=== PATIENT | female | born 1945 | race Caucasian/White ===

== ENCOUNTER 2020-06-18 07:06 | Outpatient (RCR) | payer MEDICARE, SELFPAY | END 2020-06-18 23:59 | LOC: IMMUN 07:06 | PROVIDERS: PCP Internal Medicine; Referring Provider Family Medicine; Visit Provider Family Medicine | DX: Z23 Encounter for immunization (principal) | CPT/HCPCS: 0011A; 0012A; 91301 ==

== ENCOUNTER 2024-06-29 15:38 | Observation (INO) | payer MEDICARE, SELFPAY ==
[2024-06-29 15:39] VITALS: BP 172/86; PULSE 95; RESP 16; TEMP 36.4; O2SAT 97; BMI 24.5
--- NOTE | 2024-06-29 16:04 | EX.ED.DYSGE1 ---
HPI History of Present Illness Chief Complaint: Abd Pain [facility] Medical History (Updated 06/29/24 @ 16:16 by Lakeshia Moraes) Hypercholesteremia Asthma Hypertension Allergy/AdvReac Type Severity Reaction Status Date / Time Latex, Natural Rubber Allergy Severe Anaphylaxis Verified 06/29/24 15:41 Social History Smoking Status: Never smoker EXAM Physical Exam Const Vital Signs: 06/29/24 15:39 06/29/24 17:00 06/29/24 18:00 Temperature 97.6 F L Temperature Source Oral Pulse Rate 95 Respiratory Rate 16 Blood Pressure 172/86 H 145/87 H 152/88 H Blood Pressure Mean 114 105 108 Pulse Ox 97 98 99 Oxygen Delivery Method Room Air 06/29/24 19:00 06/29/24 21:00 06/29/24 21:00 Temperature Temperature Source Pulse Rate 88 Respiratory Rate 16 Blood Pressure 147/90 H 121/75 H Blood Pressure Mean 108 88 Pulse Ox 98 97 Oxygen Delivery Method 06/29/24 23:00 Temperature Temperature Source Pulse Rate 95 Respiratory Rate 18 Blood Pressure 134/78 H Blood Pressure Mean 96 Pulse Ox 96 Oxygen Delivery Method Room Air MDM [facility] Narrative Medical decision making narrative: HISTORY OF PRESENT ILLNESS: 79-year-old female history of hypertension, hyperlipidemia, asthma presents abdominal pain that began approximate 4 hours prior to arrival. The patient notes this began at noon. Last bowel movement was today. Notes 3 bowel movements today. Denies vomiting. Notes history of hysterectomy but otherwise denies abdominal surgical history. REVIEW OF SYSTEMS: Pertinent positives: Abdominal pain Pertinent negatives: vomiting, fever, urinary complaints PHYSICAL EXAM: Nursing triage notes reviewed, Vital signs reviewed Constitutional: please see mdm HENT: MMM Eyes: Pupils equal round and reactive to light, Extraocular muscles intact Neck: No stridor, no JVD, full neck ROM Lungs: Clear to auscultation, No wheezing or rales. No increased work of breathing, no conversational dyspnea, no accessory muscle use, no nasal flaring. No respiratory distress noted Heart: Regular rate and rhythm, No murmurs, No rubs and No gallops, 2+ distal pulses (radial, femoral, posterior tibial) in all extremities Abdomen: th Rigidity, rebound or guarding, no obvious peritoneal signs, no palpable pulsatile abdominal masses, no auscultated abdominal bruit : No CVAT Extremities: No edema Neuro: No new focal neurological deficits, cranial nerves II through XII intact, 5/5 strength in all present extremities. Intact sensation to light touch in all present extremities, 2+ reflexes bilateral patella tendons. Skin: No rash or lesions noted MEDICAL DECISION MAKING: Chief Complaint: Abdominal pain External records reviewed: Reviewed prior imaging studies. No obvious imaging studies noted in [facility] Factors affecting care: asthma, HTN, HLD Social determinants of health: none History obtained from others: none Consults: General Surgery (Dr. Harmon) MDM Narrative: Patient was initially hemodynamically stable, afebrile, nontoxic-appearing. Exam with right lower quadrant TTP, no peritoneal signs. I considered the following differential diagnosis: AAA, small bowel obstruction, abdominal perforation, appendicitis, pancreatitis, hepatobiliary pathology (acute cholecystitis), mesenteric ischemia, pathology (ie nephrolithiasis, pyelonephritis). IV placed. Patient was initially resuscitated with normal saline and Toradol ALL IMAGES (IF OBTAINED) HAVE BEEN PERSONALLY REVIEWED AND INTERPRETED BY MYSELF. CBC without leukocytosis, severe anemia, no thrombocytopenia. BMP without evidence of significant electrolyte abnormalities, no anion gap, no acute kidney injury. LFTs show no evidence of hepatobiliary pathology. Urinalysis shows no evidence of urinary inflammation suggestive of UTI The patient ED course she required 2 doses of narcotic pain medication. (4 mg IV morphine). Initial CT scan was in determinate given poor contrast timing. The radiologist does mention that acute appendicitis cannot be excluded and recommended consulting general surgery. I talked to the general surgeon on-call who recommended getting an additional CT scan with oral contrast. The patient was taken down an additional 3 times however each time the visualization of the area in question was suboptimal per general surgery's wet read. At this time we are awaiting final read from radiology to determine next steps. CT read returned with essentially the same findings of nonvisualized appendix and concern for appendicitis. Discussed with Dr. Harmon who agrees to come into the emergency department to evaluate the patient. Discussed with Dr. Harmon, recommended admission for serial abdominal exams. The patient and/or family, caregivers express understanding. The patient and/or family, caregivers agrees with the plan. Shared decision making: I will have a discussion with the patient and or visitors regarding risk/benefits of further testing or admission. They will be made aware of of the risk/benefits inherent in this decision they will be given the opportunity to voice understanding. Total critical care time today provided was at least 0 minutes. This excludes separately billable procedures. Critical care time (if documented) is secondary to the patient having high probability of clinically significant/life threatening deterioration in the patient's condition which required my urgent intervention. Impression: 1. Abdominal pain 2. Right lower quadrant Inflammatory changes 3. History of hypertension Dispo: Awaiting general surgery evaluation and final recommendations This note was generated with [employer] dictation software. It may contain incorrect words, spelling, and punctuation that were not noted in review of the chart prior to signing. Lab Data Labs: Laboratory Results - last 24 hr 06/29/24 06/29/24 16:41 16:57 WBC 5.7 RBC 4.34 Hgb 13.5 Hct 40.3 MCV 92.9 MCH 31.1 MCHC 33.5 RDW Std Deviation 42.9 RDW Coeff of Lucy 12.6 Plt Count 217 MPV 9.6 Immature Gran % (Auto) 0.200 Neut % (Auto) 80.1 H Lymph % (Auto) 9.2 L [place] % (Auto) 6.0 Eos % (Auto) 4.1 Baso % (Auto) 0.4 Absolute Neuts (auto) 4.5 Absolute Lymphs (auto) 0.52 L Nucleated RBC % 0 Sodium 137 Potassium 3.9 Chloride 102 Carbon Dioxide 20.9 L Anion Gap 14 BUN 16 Creatinine 0.83 Estim Creat Clear Calc 53.14 Est GFR (MDRD) Non-Af 72 BUN/Creatinine Ratio 19.4 Glucose 112 H Calcium 9.9 Total Bilirubin 0.45 AST 33 H ALT 30 Alkaline Phosphatase 121 H Total Protein 7.6 Albumin 4.8 Globulin 2.8 Albumin/Globulin Ratio 1.7 Lipase 31 Urine Color Yellow Urine Clarity Clear Urine pH 7.0 Ur Specific [place] 1.010 Urine Protein Negative Urine Glucose (UA) Normal Urine Ketones 5 H Urine Occult Blood Negative Urine Nitrite Negative Urine Bilirubin Negative Urine Urobilinogen Normal Ur Leukocyte Esterase Negative Urine RBC 0 SEEN Urine WBC 0-5 SEEN Ur Squamous Epith Cells 0 SEEN Ur Transition Epith Cell 0-5 SEEN Urine Bacteria 0 SEEN Urine Mucus 0 SEEN Radiography Diagnostic Testing: Clinical Impression(s) from Imaging Studies Abdomen/Pelvis CT 06/29/24 16:42 IMPRESSION: 1. Prominent inflammatory changes in the right lower quadrant appear centered on a relatively short segment of mid ileum immediately abutting the cecum and distal/terminal ileum. Although this could reflect prominent focal enteritis, given that the appendix is not identified as a distinct structure, acute appendicitis cannot be excluded. Adjacent free fluid without organized collection to suggest current abscess. A follow-up exam with p.o. contrast maybe helpful. Surgical consultation should be considered. 2. Indeterminate 1.9 cm left adrenal nodule. If there is no history of malignancy, consider follow-up adrenal protocol CT in 12 months per ACR recommendations. If there is history of known malignancy, this should be performed more expeditiously. Comparison with any available outside imaging may also be helpful. 3. Additional description as above. Findings in impression #1 were discussed by telephone with Livia SHAHID at 4:20 pm [facility] on 06/29/2024. Reading Location: [facility] Abdomen CT 06/29/24 18:27 IMPRESSION: Right lower quadrant inflammatory changes involving the distal and terminal ileum, as well as the cecum with adjacent stranding, the appendix is not visualized. Underlying acute appendicitis can not be excluded. Alternatively this may represent inflammatory/infectious etiology involving the distal and terminal ileum, as well as the cecum. Surgical consultation is recommended. 1 cm indeterminate right adrenal nodule. MRI of the adrenal glands is recommended for further characterization. One or more dose reduction techniques were used (e.g., Automated exposure control, adjustment of the mA and/or kV according to patient size, use of iterative reconstruction technique). Reading Location: [facility] Discharge Plan Triage Chief Complaint: Abd Pain ED Provider: Surya Bhakta Dx/Rx/DC Orders Primary Care Provider: Hernan Srivastava Referrals: Hernan Srivastava MD [Primary Care Provider] - Print Language: [place]
--- NOTE | 2024-06-29 16:42 | CT_ITS ---
PROCEDURE: ABDOMEN/PELVIS W IV CONT ONLY REASON FOR EXAM: Right lower quadrant abdominal pain TECHNIQUE: CT abdomen and pelvis was performed with IV contrast. Multiplanar reformats were generated. IV CONTRAST: 99 mL Isovue-300 COMPARISON: None FINDINGS: Lung bases: Mild atelectasis/scarring.. Liver: Unremarkable. Spleen: Unremarkable. Gallbladder: Unremarkable. Pancreas: Unremarkable. Adrenals: 1.9 x 1.0 cm indeterminate right adrenal nodule. Kidneys: Fullness of the extrarenal pelvis bilaterally without deena caliectasis/hydronephrosis. Bowel: Gastric under distension limits evaluation of the wall thickness. Prominent inflammatory changes in the right lower quadrant appear centered on a relatively short segment of inflamed mid ileum which demonstrates marked wall thickening and mural stratification with mesenteric edema and adjacent free fluid. This immediately abuts the cecum which appears slightly distorted with margins difficult to delineate given inflammation in the region. The appendix is not discretely identified as if this distinct structure. The distal most terminal ileum immediately above this region however appear decompressed and unremarkable. Small bowel upstream from the inflamed segment demonstrates fluid and gaseous distention to maximum 2.4 cm, without deena dilatation, favoring ileus related to inflammation. Diverticulosis. Lymph nodes: Unremarkable. Vasculature: Trace atherosclerosis. Peritoneum: As above. Bladder: Distended and otherwise unremarkable. Reproductive Organs: Hysterectomy. Body Wall: Unremarkable. Bones: Degenerative disc disease greatest at L5-S1. CT/Abdomen/Pelvis W IV Cont ONLY IMPRESSION: 1. Prominent inflammatory changes in the right lower quadrant appear centered o n a relatively short segment of mid ileum immediately abutting the cecum and distal/terminal ileum. Although this could reflect prominent focal enteritis, given that the appendix is not identified as a distinct structure, acute appendicitis cannot b e excluded. Adjacent free fluid without organized collection to suggest current abscess. A follow-up exam with p.o. contrast may be helpful. Surgical consultation should be considered. 2. Indeterminate 1.9 cm left adrenal nodule. If there is no history of maligna ncy, consider follow-up adrenal protocol CT in 12 months per ACR recommendations. If there is history of known malignancy, this s hould be performed more expeditiously. Comparison with any available outside imaging may also be helpful. 3. Additional description as above. Findings in impression #1 were discussed by telephone with Livia SHAHID at 4:20 pm [facility] on 06/29/2024. Reading Location: [id number]
[2024-06-29] MEDS: Ketorolac 15 MG/ML Vial IV (16:52)
[2024-06-29] MEDS: 0.9% Normal Saline (1000mL) 1,000 ML 999 ML IV (16:53)
[2024-06-29 17:00] VITALS: BP 145/87; O2SAT 98
[2024-06-29 17:03] LABS: Bacteria 0 SEEN /hpf (None Seen); Mucous, Urine 0 SEEN /hpf (<or=2+); Squamous Epithelial Cells - UA 0 SEEN /hpf (5-10)
[2024-06-29 17:05] LABS: Absolute Lymphocyte Count 0.52 X10^3/uL (0.83-4.51); Absolute Neutrophil Count 4.5 X10^3/uL (2.0-7.7); Basophil# 0.02 X10^3/uL; Basophil% 0.4 % (0-1); Eosinophil# 0.23 X10^3/uL; Eosinophils% 4.1 % (0-5); Hematocrit 40.3 % (37-47); Hemoglobin 13.5 g/dL (12.0-15.0); Lymphocyte # 0.52 X10^3/ul (0.83-4.51); Lymphocyte % 9.2 % (19-41); Mean Corp Hgb Conc 33.5 g/dL (32-36); Mean Corpuscular Hgb 31.1 pg (27.0-32.0); Mean Corpuscular Volume 92.9 fL (81-99); Mean Platelet Vol. 9.6 fl (6.2-12.0); Monocyte# 0.34 X10^3/uL; NRBC Flagged by Analyzer 0 % (0-5); Neutrophil # 4.53 X10^3/uL (2.7-7.7); Neutrophil % 80.1 % (47-70); POSITIVE DIFFERENTIAL YES; Platelet Count 217 K/mm3 (150-450); RBC Distribution Width CV 12.6 % (11.6-14.6); RBC Distribution Width SD 42.9 fl (35.1-43.9); Red Blood Count 4.34 M/mm3 (4.2-5.4); White Blood Count 5.7 K/mm3 (4.4-11.0)
[2024-06-29 17:17] LABS: ALB/GLOB Ratio 1.7 RATIO (0.9-2.4); AST(SGOT) 33 U/L (<=31); Alanine Aminotransfer ALT/SGPT 30 U/L (<=34); Albumin, Serum 4.8 g/dL (3.4-4.8); Alkaline Phosphatase 121 U/L (35-104); Anion Gap 14 (5-15); BUN 16 mg/dL (4-19); BUN/Creat Ratio 19.4 RATIO (10-20); Calcium,Total 9.9 mg/dL (7.6-11.0); Carbon Dioxide 20.9 mmol/L (21.0-32.0); Chloride 102 mmol/L (98-108); Creatinine, Serum 0.83 mg/dL (0.70-1.20); EST Glomerular Filtration Rate 72 (>60); Estimated Creatinine Clearance 53.14 ml/min (50-250); Globulin 2.8 g/dL (2.2-4.2); Glucose 112 mg/dL (70-99); Lipase 31 U/L (13-75); Potassium 3.9 mmol/L (3.3-5.1); Protein, Total 7.6 g/dL (5.9-8.4); Sodium Level 137 mmol/L (133-145); Total Bilirubin 0.45 mg/dL (0.00-1.30)
[2024-06-29 17:33] LABS: Color, Urine Yellow (Yellow); Glucose, Dipstick Normal (Normal); Ketone-Dipstick 5 mg/dl (Negative); Leukocyte Esterase-Dipstick Negative /ul (Negative); Nitrite-Dipstick Negative (Negative); Occult Blood-Urine Negative /ul (Negative); Protein-Dipstick Negative (Negative); Urine Bilirubin Dipstick Negative (Negative); Urine Clarity Clear (Clear); Urine Urobilinogen Normal (Normal)
[2024-06-29 18:00] VITALS: BP 152/88; O2SAT 99
[2024-06-29] MEDS: Morphine 4 MG/ML Syringe IV ×2 (18:20→23:45)
--- NOTE | 2024-06-29 18:27 | CT_ITS ---
PROCEDURE: ABDOMEN/PEL W ORAL CONT ONLY REASON FOR EXAM: Right lower quadrant pain TECHNIQUE: Abdomen and pelvis CT without intravenous contrast. Oral contrast was used. COMPARISON: CT of the abdomen and pelvis obtained earlier today. FINDINGS: Noncontrast technique limits evaluation of the abdominal and pelvic viscera. Lung bases: Bibasilar atelectasis. Liver: Unremarkable. Gallbladder: Unremarkable. Spleen: Unremarkable. Pancreas: Unremarkable. Adrenals: 1 cm indeterminate right adrenal nodule. Kidneys: Excretory phase. No evidence of hydronephrosis. Bladder: Unremarkable. Reproductive Organs: Prior hysterectomy. Adnexal regions are unremarkable. Bowel: Oral contrast reaches the mid small bowel. The distal small bowel and large bowel are limited due to lack of oral contrast opacification. Stomach appears grossly unremarkable. Prominent loops of proximal small bowel, no wall thickening or adjacent stranding. There is marked inflammatory changes of the right lower quadrant, involving the distal and terminal ileum, as well as the cecum with adjacent stranding. This is unchanged when compared with the earlier study. The remaining large bowel appears grossly unremarkable. Appendix: The appendix is not clearly visualized, underlying acute appendicitis can not be excluded. Lymph nodes: Prominent mesenteric lymph nodes. Vasculature: Major vascular structures are unremarkable. Peritoneum / Retroperitoneum: No ascites. No free air. Bones: Unremarkable. CT/Abdomen/Pel W ORAL Cont Only IMPRESSION: Right lower quadrant inflammatory changes involving the distal and terminal ile um, as well as the cecum with adjacent stranding, the appendix is not visualized. Underlying acute appendicitis can not be exclu ded. Alternatively this may represent inflammatory/infectious etiology involving the distal and terminal ileum, as we ll as the cecum. Surgical consultation is recommended. 1 cm indeterminate right adrenal nodule. MRI of the adrenal glands is recommen ded for further characterization. One or more dose reduction techniques were used (e.g., Automated exposure contr ol, adjustment of the mA and/or kV according to patient size, use of iterative reconstruction technique). Reading Location: [facility]
[2024-06-29 18:35] LABS: Red Blood Cells-Urine 0 SEEN /hpf (0-5); Transitional Epithelial - Ur 0-5 SEEN /hpf (0-5); White Blood Cells 0-5 SEEN /hpf (0-5)
[2024-06-29 19:00] VITALS: BP 147/90
[2024-06-29 21:00] VITALS: BP 121/75; PULSE 88; RESP 16; O2SAT 97; O2SAT 98
[2024-06-29 23:00] VITALS: BP 134/78; PULSE 95; RESP 18; O2SAT 96
[2024-06-29] MEDS: 0.9% Normal Saline (500mL Bag) 500 ML 999 ML IV (23:45)
[2024-06-29] MEDS: Ondansetron 4 MG/2 ML Vial IV (23:45)
[2024-06-30] VITALS (15 sets, daily range): BP systolic 135–159; BP diastolic 66–87; PULSE 76–103; RESP 15–18; TEMP 36.6–37.1; O2SAT 93–100; BMI 24.5
--- NOTE | 2024-06-30 00:44 | HP.PCM_ITS ---
HPI - General General Date of Admission: 06/30/24 Chief Complaint: Acute onset abdominal pain HPI Narrative DEVAN DAVIS, is a 79 F who presents to [facility] with complaints of acute onset abdominal pain that began shortly after her lunch today. She states she had a lunch of soup followed by some ice cream and within 10 minutes experience mid abdominal pain with some pain radiation to her back that has become now localized to right sided abdominal pain. This pain has been associated with some episodic nausea and 1 bout of vomiting. Patient states that shortly after the abdominal pain began she thought she may find some relief by passing gas so she went to the bathroom and experienced a normal bowel movement. She adds that her bowel movement frequency was exceptional as she never experiences 3 bowel movements like she did today, however, she denies noting any loose stools, dark stools, or any other unusual abnormalities. She denies any sick contacts. She shares she does have a diagnosis of asthma and was recently evaluated for an asthma exacerbation and placed on antibiotics in the last 2 weeks. Patient's ER workup notable for CBC without leukocytosis but there is a left shift present. CT imaging of the abdomen pelvis was initially completed with IV contrast. This simply showed inflammatory changes of the right lower quadrant of the abdomen without definitive identification of the appendix. Therefore acute appendicitis was unable to be ruled out but a p.o. contrast scan was recommended. I was briefed of the patient's presentation and seconded this recommendation and tried to help facilitate its completion. Ultimately the follow-up scan was read much the same as the first and I was asked to formally evaluate patient. Patient's past medical history is inclusive of hyperlipidemia and hypertension in addition to her asthma. Her only past surgical history is that of a hysterectomy. She denies any family history of inflammatory bowel disease. [facility] Medical History (Updated 06/30/24 @ 00:[address] Sage Harmon MD) Hypercholesteremia Asthma Hypertension Home Medications ?Medication ?Instructions ?Recorded ?Last Taken ?Type amlodipine 5 mg tablet 5 mg PO DAILY 06/30/24 Unkno wn History atorvastatin 10 mg tablet 10 mg PO QHS 06/30/24 Unknow n History cetirizine 10 mg capsule (All Day 10 mg PO QHS 5 Unknown History Allergy (cetirizine)) Allergy/AdvReac Type Severity Reaction Status Date / Time Latex, Natural Rubber Allergy Severe Anaphylaxis Verified 06/29/24 15:41 Social History Smoking Status: Never smoker Vital Signs Vital Signs Vital Signs: 06/29/24 15:39 06/29/24 17:00 06/29/24 18:00 Temperature 97.6 F L Temperature Source Oral Pulse Rate 95 Respiratory Rate 16 Blood Pressure 172/86 H 145/87 H 152/88 H Blood Pressure Mean 114 105 108 Pulse Ox 97 98 99 Oxygen Delivery Method Room Air 06/29/24 19:00 06/29/24 21:00 06/29/24 21:00 Temperature Temperature Source Pulse Rate 88 Respiratory Rate 16 Blood Pressure 147/90 H 121/75 H Blood Pressure Mean 108 88 Pulse Ox 98 97 Oxygen Delivery Method 06/29/24 23:00 06/30/24 00:26 Temperature 98.2 F Temperature Source Pulse Rate 95 88 Respiratory Rate 18 15 Blood Pressure 134/78 H 159/80 H Blood Pressure Mean 96 106 Pulse Ox 96 96 Oxygen Delivery Method Room Air Weight Weight: 152 lb Body Mass Index (BMI) 24.5 Physical Exam Const alert, oriented x3 and no apparent distress General Appearance: cooperative Resp normal respiratory effort GI GI Narrative: Slender nondistended, soft, minimally tender to palpation (patient rates currently on a 2-3 out of 10 at over McBurney's point). There is a mildly positive obturator and psoas sign. Skin Skin Narrative: Petechial rash across patient's upper abdomen. Results Lab / Micro Data 06/29/24 16:41 06/29/24 16:41 Labs: Laboratory Results - last 24 hr 06/29/24 16:41: WBC 5.7, RBC 4.34, Hgb 13.5, Hct 40.3, MCV 92.9, MCH 31.1, MCHC 33.5, RDW Std Deviation 42.9, RDW Coeff of Lucy 12.6, Plt Count 217, MPV 9.6, Immature Gran % (Auto) 0.200, Neut % (Auto) 80.1 H, Lymph % (Auto) 9.2 L, [place] % (Auto) 6.0, Eos % (Auto) 4.1, Baso % (Auto) 0.4, Absolute Neuts (auto) 4.5, A bsolute Lymphs (auto) 0.52 L, Nucleated RBC % 0, Sodium 137, Potassium 3.9, Chloride 102, Carbon Dioxide 20.9 L, Anion Gap 14, BUN 16, Creatinine 0.83, Estim Creat Clear Calc 53.14, Est GFR (MDRD) Non-Af 72, BUN/Creatinine Ratio 19.4, Glucose 112 H, Calcium 9.9, Total Bilirubin 0.45, AST 33 H, ALT 30, A lkaline Phosphatase 121 H, Total Protein 7.6, Albumin 4.8, Globulin 2.8, Albumin/Globulin Ratio 1.7, Lipase 31 06/29/24 16:57: Urine Color Yellow, Urine Clarity Clear, Urine pH 7.0, Ur Specific [place] 1.010, Urine Protein Negative, Urine Glucose (UA) Normal, Urine Ketones 5 H, Urine Occult Blood Negative, Urine Nitrite Negative, Urine Bilirubin Negative, Urine Urobilinogen Normal, Ur Leukocyte Esterase Negative, Urine RBC 0 SEEN, Urine WBC 0-5 SEEN, Ur Squamous Epith Cells 0 SEEN, Ur Transition Epith Cell 0-5 SEEN, Urine Bacteria 0 SEEN, Urine Mucus 0 SEEN Imaging Radiology Impression Abdomen/Pelvis CT 06/29/24 16:42 IMPRESSION: 1. Prominent inflammatory changes in the right lower quadrant appear centered on a relatively short segment of mid ileum immediately abutting the cecum and distal/terminal ileum. Although this could reflect prominent focal enteritis, given that the appendix is not identified as a distinct structure, acute appendicitis cannot be excluded. Adjacent free fluid without organized collection to suggest current abscess. A follow-up exam with p.o. contrast maybe helpful. Surgical consultation should be considered. 2. Indeterminate 1.9 cm left adrenal nodule. If there is no history of malignancy, consider follow-up adrenal protocol CT in 12 months per ACR recommendations. If there is history of known malignancy, this should be performed more expeditiously. Comparison with any available outside imaging may also be helpful. 3. Additional description as above. Findings in impression #1 were discussed by telephone with Livia SHAHID at 4:20 pm [facility] on 06/29/2024. Reading Location: [id number] Abdomen CT 06/29/24 18:27 IMPRESSION: Right lower quadrant inflammatory changes involving the distal and terminal ileum, as well as the cecum with adjacent stranding, the appendix is not visualized. Underlying acute appendicitis can not be excluded. Alternatively this may represent inflammatory/infectious etiology involving the distal and terminal ileum, as well as the cecum. Surgical consultation is recommended. 1 cm indeterminate right adrenal nodule. MRI of the adrenal glands is recommended for further characterization. One or more dose reduction techniques were used (e.g., Automated exposure control, adjustment of the mA and/or kV according to patient size, use of iterative reconstruction technique). Reading Location: [facility] Assessment & Plan Assessment/Plan (1) Right lower quadrant abdominal pain: PLAN: Patient is 79-year-old female who presents with acute onset right lower quadrant pain with some associated nausea. CT imaging of the abdomen pelvis was obtained to rule out appendicitis, but unfortunately both patient's index study and follow-up study with enteric contrast were largely equivocal for this diagnosis. In my elicitation of the patient's history and review of her laboratories I find her Patel score to be 5 which simply corresponds with possible appendicitis. Patient's exam is unimpressive for me as she rates her pain at just a 2-3 out of 10. She acknowledges that she fairly recently had some pain medication administered. With her equivocal CT imaging, pretest probability, and exam I am inclined to proceed with additional watchful waiting and recommended observational stay for serial abdominal exams. Patient was receptive and we will plan to admit to the hospital for conservative management without antibiotics and an opportunity to reexamine patient later this morning. Patient is advised to remain n.p.o. such that if she is found to be more convincingly consistent with a diagnosis of appendicitis we will plan to proceed to the operating room for diagnostic laparoscopy and laparoscopic appendectomy. Patient confirms understanding. Sage Harmon MD General Surgery Endocrine Surgery Pager: [facility] [address] [place] [address], [address] [place] [address] Office: [phone] (2) Abnormal CT of the abdomen: Charges/Coding Visit Charges Inpatient E&M: 31797 Init Hosp L2
[2024-06-30] MEDS: 0.9% Saline Lock 10 ML Syringe IV (01:52)
[2024-06-30] MEDS: 0.9% Normal Saline (1000mL) 1,000 ML 100 ML IV ×2 (01:52→14:05)
[2024-06-30] MEDS: HYDROmorphone 0.5 MG/0.5 ML SYRINGE IV (02:15)
[2024-06-30 06:45] LABS: Absolute Lymphocyte Count 0.46 X10^3/uL (0.83-4.51); Absolute Neutrophil Count 5.4 X10^3/uL (2.0-7.7); Basophil# 0.02 X10^3/uL; Basophil% 0.3 % (0-1); Eosinophil# 0.04 X10^3/uL; Eosinophils% 0.6 % (0-5); Hematocrit 37.1 % (37-47); Hemoglobin 12.2 g/dL (12.0-15.0); Lymphocyte # 0.46 X10^3/ul (0.83-4.51); Lymphocyte % 7.4 % (19-41); Mean Corp Hgb Conc 32.9 g/dL (32-36); Mean Corpuscular Hgb 31.1 pg (27.0-32.0); Mean Corpuscular Volume 94.6 fL (81-99); Monocyte# 0.34 X10^3/uL; Monocyte% 5.4 % (0-10); NRBC Flagged by Analyzer 0 % (0-5); Neutrophil # 5.35 X10^3/uL (2.7-7.7); Neutrophil % 85.8 % (47-70); POSITIVE DIFFERENTIAL YES; Platelet Count 234 K/mm3 (150-450); RBC Distribution Width CV 12.7 % (11.6-14.6); RBC Distribution Width SD 43.2 fl (35.1-43.9); Red Blood Count 3.92 M/mm3 (4.2-5.4); White Blood Count 6.2 K/mm3 (4.4-11.0)
[2024-06-30 07:45] LABS: Anion Gap 14 (5-15); BUN 13 mg/dL (4-19); BUN/Creat Ratio 16.4 RATIO (10-20); Calcium,Total 9.1 mg/dL (7.6-11.0); Carbon Dioxide 21.2 mmol/L (21.0-32.0); Chloride 104 mmol/L (98-108); Creatinine, Serum 0.81 mg/dL (0.70-1.20); EST Glomerular Filtration Rate 75 (>60); Estimated Creatinine Clearance 54.45 ml/min (50-250); Glucose 108 mg/dL (70-99); Potassium 3.9 mmol/L (3.3-5.1); Sodium Level 139 mmol/L (133-145)
--- NOTE | 2024-06-30 08:02 | PN.SURG_ITS ---
Objective Data Objective Data Vital Signs: Vital Signs Temp Pulse Resp BP Pulse Ox O2 Del Method 98.4 F 89 16 136/71 H 96 Room Air 06/30/24 06:45 06/30/24 06:45 06/30/24 06:45 06/30/24 06:45 06/30/24 06:45 06/30/24 06:45 Oxygen Delivery Method Room Air Weight: 151 lb 10.848 oz Body Mass Index (BMI) 24.5 Intake & Output: Intake and Output for Last 24 Hours 06/28/24 06/29/24 06/30/24 23:59 23:59 23:59 Intake Total 1000 / 1000 500 / 500 Balance 1000 / 1000 500 / 500 Lab / Micro Data 06/30/24 05:23 06/30/24 05:23 Labs: Laboratory Results - last 24 hr 06/29/24 16:41: WBC 5.7, RBC 4.34, Hgb 13.5, Hct 40.3, MCV 92.9, MCH 31.1, MCHC 33.5, RDW Std Deviation 42.9, RDW Coeff of Lucy 12.6, Plt Count 217, MPV 9.6, Immature Gran % (Auto) 0.200, Neut % (Auto) 80.1 H, Lymph % (Auto) 9.2 L, Holt % (Auto) 6.0, Eos % (Auto) 4.1, Baso % (Auto) 0.4, Absolute Neuts (auto) 4.5, A bsolute Lymphs (auto) 0.52 L, Nucleated RBC % 0, Sodium 137, Potassium 3.9, Chloride 102, Carbon Dioxide 20.9 L, Anion Gap 14, BUN 16, Creatinine 0.83, Estim Creat Clear Calc 53.14, Est GFR (MDRD) Non-Af 72, BUN/Creatinine Ratio 19.4, Glucose 112 H, Calcium 9.9, Total Bilirubin 0.45, AST 33 H, ALT 30, A lkaline Phosphatase 121 H, Total Protein 7.6, Albumin 4.8, Globulin 2.8, Albumin/Globulin Ratio 1.7, Lipase 31 06/29/24 16:57: Urine Color Yellow, Urine Clarity Clear, Urine pH 7.0, Ur Specific [place] 1.010, Urine Protein Negative, Urine Glucose (UA) Normal, Urine Ketones 5 H, Urine Occult Blood Negative, Urine Nitrite Negative, Urine Bilirubin Negative, Urine Urobilinogen Normal, Ur Leukocyte Esterase Negative, Urine RBC 0 SEEN, Urine WBC 0-5 SEEN, Ur Squamous Epith Cells 0 SEEN, Ur Transition Epith Cell 0-5 SEEN, Urine Bacteria 0 SEEN, Urine Mucus 0 SEEN 06/30/24 05:23: WBC 6.2, RBC 3.92 L, Hgb 12.2, Hct 37.1, MCV 94.6, MCH 31.1, MCHC 32.9, RDW Std Deviation 43.2, RDW Coeff of Lucy 12.7, Plt Count 234, MPV 10.0, Immature Gran % (Auto) 0.500, Neut % (Auto) 85.8 H, Lymph % (Auto) 7.4 L, Holt % (Auto) 5.4, Eos % (Auto) 0.6, Baso % (Auto) 0.3, Absolute Neuts (auto) 5.4, Absolute Lymphs (auto) 0.46 L, Nucleated RBC % 0, Sodium 139, Potassium 3.9, Chloride 104, Carbon Dioxide 21.2, Anion Gap 14, BUN 13, Creatinine 0.81, Estim Creat Clear Calc 54.45, Est GFR (MDRD) Non-Af 75, BUN/Creatinine Ratio 16.4, Glucose 108 H, Calcium 9.1 Radiography Diagnostic Testing: Radiology Impression Abdomen/Pelvis CT 06/29/24 16:42 IMPRESSION: 1. Prominent inflammatory changes in the right lower quadrant appear centered on a relatively short segment of mid ileum immediately abutting the cecum and distal/terminal ileum. Although this could reflect prominent focal enteritis, given that the appendix is not identified as a distinct structure, acute appendicitis cannot be excluded. Adjacent free fluid without organized collection to suggest current abscess. A follow-up exam with p.o. contrast maybe helpful. Surgical consultation should be considered. 2. Indeterminate 1.9 cm left adrenal nodule. If there is no history of malignancy, consider follow-up adrenal protocol CT in 12 months per ACR recommendations. If there is history of known malignancy, this should be performed more expeditiously. Comparison with any available outside imaging may also be helpful. 3. Additional description as above. Findings in impression #1 were discussed by telephone with Livia SHAHID at 4:20 pm [facility] on 06/29/2024. Reading Location: [id number] Abdomen CT 06/29/24 18:27 IMPRESSION: Right lower quadrant inflammatory changes involving the distal and terminal ileum, as well as the cecum with adjacent stranding, the appendix is not visualized. Underlying acute appendicitis can not be excluded. Alternatively this may represent inflammatory/infectious etiology involving the distal and terminal ileum, as well as the cecum. Surgical consultation is recommended. 1 cm indeterminate right adrenal nodule. MRI of the adrenal glands is recommended for further characterization. One or more dose reduction techniques were used (e.g., Automated exposure control, adjustment of the mA and/or kV according to patient size, use of iterative reconstruction technique). Reading Location: [facility]
--- NOTE | 2024-06-30 08:37 | PCM.PN.BLA ---
Progress Note Patient is seen and evaluated bedside this morning. She is initially found roaming about her room. She declares she is as good as can be expected and by the states that her pain has been tolerable but she has required 2 doses of IV pain medication overnight. Additionally, she complains that she has not been able to sleep. She remains tender to palpation over McBurney's point and her left shift has worsened somewhat. I tell her that she remains equivocal for a diagnosis of appendicitis but and the name of preventing further inaction and hopefully finding an answer to the cause for her right lower quadrant inflammatory change I do recommend proceeding for diagnostic laparoscopy. Further, I recommend that we proceed with appendectomy during the operation to be certain we exclude this from in the future because of inflammation. Patient provides her verbal assent. Procedure was described in detail and questions were answered. Will obtain written consent. Operating room team has been notified. IV antibiotics have been initiated.
--- NOTE | 2024-06-30 09:10 | PRE.ANES_ITS ---
ASA Classification* ASA Classification ASA Classification: 2 and E Assessment & Plan Anesthesia* Anesthesia Assessment Anesthesia Assessment: Discussed sedation and/or anesthesia options, risks, benefits, and alternatives with patient/parents/legal guardian/POA. Questions invited. The patient/parents/legal guardian/POA seems to understand and agrees to proceed with anesthesia plan. Reviewed the physical assessment, medical history, allergy history and patient home medications list prior to surgery/procedure/anesthetic and documented any changes. Performed airway and anesthesia risk assessments. Anesthesia Type Anesthesia Type: General Anesthesia Focused Assessment* Temperature: 98.3 F Pulse Rate: 91 Blood Pressure: 144/87 Respiratory Rate: 18 Pulse Ox: 98 Airway Assessment Mouth opens: >3 cm Mallampati Score: II Focused Labs Anesthesia Preop lab: CBC WBC 6.2 K/mm3 (4.4-11.0) 06/30/24 05:06/30/24 RBC 3.92 M/mm3 (4.2-5.4) L 06/30/24 05:06/30/24 Hgb 12.2 g/dL (12.0-15.0) 06/30/24 05:23 06/30/24 Hct 37.1 % (37-47) 06/30/24 05:23 06/30/24 Plt Count 234 K/mm3 (150-450) 06/30/24 05:23 06/30/24 CHEMISTRY Potassium 3.9 mmol/L (3.3-5.1) 06/30/24 05:23 06/30/24 Sodium 139 mmol/L (133-145) 06/30/24 05:06/30/24 BUN 13 mg/dL (4-19) 06/30/24 05:06/30/24 Creatinine 0.81 mg/dL (0.70-1.20) 06/30/24 05:06/30/24 Glucose 108 mg/dL (70-99) H 06/30/24 05:23 06/30/24 COAG Pre-Assessment Diagnosis/Proposed Procedure Planned Operative Procedure(s): Exploratory laparoscopy, possible appendectomy Anesthesia History 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 When Was Last Pacemaker Check QUESTION #4 FULL TEXT: You/Your Family Experience fever (hyperthermia) with Anesthesia Last Oral Intake Last Oral intake: Last Oral Intake NPO since 00:00 06/30/24 08:45 Meds taken in AM with sips of No 06/30/24 08:45 water? Meds patient instructed to take am of surgery PONV PONV - explosive ordnance technician: PONV - explosive ordnance technician Female HX of Motion Sickness HX of N/V After Surgery Non-Smoker Duration of Surgery greater than 60 minutes Number of Risk Factors PONV Score Height & Weight Height & Weight: Anesthesia: Height & Weight Height 5 ft 6 in 06/30/24 08:45 Weight: 68.8 kg 06/30/24 08:45 Body Mass Index (BMI) 24.5 06/30/24 08:45 Respiratory Assessment Respiratory Assessment - explosive ordnance technician: Respiratory Tract Infection Hx - explosive ordnance technician Hx Respiratory Tract Infection Yes: URI mid-April to 06/30/24 01:31 current STOP Sleep Apnea STOP Sleep Apnea - explosive ordnance technician: STOP Sleep Apnea - explosive ordnance technician Hx Hypertension Yes 06/30/24 01:26 Hx Sleep Apnea No 06/30/24 01:26 CPAP BIPAP Do you snore loudly (louder No 06/30/24 01:26 than talking or can be heard Do you often feel tired/ Yes 06/30/24 01:26 fatigued/ sleepy during daytime? Has anyone observed you stop No 06/30/24 01:26 breathing during sleep? STOP Results Positive 06/30/24 01:26 QUESTION #5 FULL TEXT : Do you snore loudly (louder than talking or can be heard through closed doors)? Tobacco Use History Tobacco Use History - explosive ordnance technician: Tobacco Use History - explosive ordnance technician Tobacco Use Smoking Status Former smoker 06/30/24 01:26 Hx Tobacco Use No 06/30/24 01:26 Years Smoking 20 06/30/24 01:26 Packs Smoked per Day 0.5 06/30/24 01:26 Smoking Cessation Date was Yes - quit smoking within 15 06/30/24 01:26 within the last 15 years years Hx Smoking Cessation Date Hx Smoking Cessation Counseling Hematologic Medial History Hematologic Hx - explosive ordnance technician: Hematologic Medical Hx - laserist Hx of Blood Transfusion No 06/30/24 01:26 Hx of Transfusion in last 3 No 06/30/24 01:26 Months Date of Last Transfusion (if within last 3 months) Ever experience any problems No 06/30/24 01:26 with transfusion(s)? Specify any problems Hx of Preganancy in last 3 No 06/30/24 01:26 Months Nurse Filling Out Transfusion JGLASS 06/30/24 01:26 & Questions: Date: 06/30/24 06/30/24 01:26 Time: 01:06/30/24 01:26 Patient unable to answer at this time (ie. confused, unrespo /Reproduction History /Reproductive History - explosive ordnance technician: /Reproductive Hx- explosive ordnance technician Hx Now No 06/30/24 01:31 Gestational Age (in weeks): EDC: Hx Hx Para Hx Section SAB No 06/30/24 01:31 Active Medications Active Medications: Current Medications Generic Name Dose Route Start Last Admin Trade Name Freq PRN Reason Stop Dose Admin Acetaminophen 500 mg 06/30/24 00:41 Acetaminophen 500 Mg Tablet PO Q6H PRN PRN Pain Score 1-10 Albuterol Sulfate 2.5 mg 06/30/24 08:45 Albuterol 2.5 Mg/3 Ml Vial.Neb. INHALATION Q6HWA.RT [facility] Amlodipine Besylate 5 mg 06/30/24 10:00 Amlodipine 5 Mg Tablet PO DAILY [facility] Protocol Atorvastatin Calcium 10 mg 06/30/24 22:00 Atorvastatin Calcium 10 Mg Tablet PO QHS BASIL Budesonide 0.5 mg 06/30/24 08:45 Budesonide Respules 0.5 Mg/2 Ml Ampul.Neb. INHALATION Q12H.RT [facility] Hydromorphone HCl 0.5 mg 06/30/24 00:41 06/30/24 02:15 Hydromorphone 0.5 Mg/0.5 Ml Syringe IV 0.5 mg Q4H PRN PRN Administration Pain Score 6-10 Sodium Chloride 1,000 mls @ 100 mls/hr 06/30/24 00:45 06/30/24 01:52 IV 06/30/24 20:44 100 mls/hr .Q10H BASIL Administration Protocol Sodium Chloride 100 mls @ 15 mls/hr 06/30/24 01:08 IV .Q6H40M PRN Saline Flush Piperacillin Sod/Tazobactam 50 mls @ 12.5 mls/hr 06/30/24 08:40 Sod 3.375 gm/ Sodium Chloride IV Q8 BASIL Ondansetron HCl 4 mg 06/30/24 00:41 Ondansetron 4 Mg/2 Ml Vial IV Q6H PRN PRN NAUSEA/VOMITING Sodium Chloride 10 - 40 ml 06/30/24 01:08 06/30/24 01:52 0.9% Saline Lock 10 Ml Syringe IV 10 ml UD PRN Administration SALINE FLUSH PFSH Medical History Arthritis Insomnia Eczema Hypercholesteremia Asthma Hypertension Home Medications ?Medication ?Instructions ?Recorded ?Last Taken ?Type albuterol sulfate 90 mcg/actuation 2 - 4 puff inhalati on Q2H PRN PRN 06/30/24 Unknown History aerosol inhaler wheezing amlodipine 5 mg tablet 5 mg PO DAILY blood pressure 06/30/24 06/29/24 07:30 History ascorbic acid (vitamin C) 500 mg 500 mg PO DAILY suppl ement 06/30/24 06/29/24 07:30 History chewable tablet (C-500) atorvastatin 10 mg tablet 10 mg PO QHS cholesterol 12/1706/28/24 22:00 History cetirizine 10 mg capsule (All Day 10 mg PO QHS allergi es 06/30/24 06/28/24 22:00 History Allergy (cetirizine)) ibuprofen 200 mg tablet (Advil) 400 mg PO BID arthriti s 06/30/24 06/29/24 07:30 History lorazepam 1 mg tablet 1 mg PO QHS PRN PRN anxiety or 06/30/24 Unknown History insomnia mometasone-formoterol HFA 100 1 puff inhalation BID as thma 06/30/24 06/29/24 07:30 History mcg-5 mcg/actuation aerosol inhaler (Dulera) multivitamin (Daily Value tablet) 1 tab PO DAILY suppl ement 06/30/24 Unknown History Allergy/AdvReac Type Severity Reaction Status Date / Time Latex, Natural Rubber Allergy Severe Anaphylaxis Verified 06/29/24 15:41 codeine AdvReac Mild Upset Verified 06/30/24 01:15 Stomach Surgical History History of melanoma excision History of hysterectomy Social History Smoking Status: Former smoker Review of Systems (Anesthesia) ROS Narrative System reviewed and no additional complaints, except as documented.
[2024-06-30] MEDS: Piperacil/Tazobactam 3.375 GM in 0.9% Normal Saline (50mL MB+) 50 ML IV ×3 (09:37→21:24)
--- NOTE | 2024-06-30 10:20 | APP_PTH ---
PATIENT: DEVAN DAVIS LOC: [facility] U#:[id number] AGE/SX: 79/F ROOM: MD321 RE06/30/[address]: Dr. Sage Harmon MD : 1945 BED: 1 DIS: 07/02/2024 SPEC #: [id number] RECD: 07/02/24 11:03 STATUS: IONA REGus #: [id number] MYRNA: 06/30/24 10:[address]: Sage Harmon DEPT: SURGICAL PATHOLOGY RECD BY: Pedro Easton ENTERED: 07/02/24 11:04 SP TYPE: APPENDIX OTHR DR: Dr. Hernan Srivastava MD Tissues: Appendix, NOS Procedures: Surgery Specimen Level III HEADER OPERATION: Exploratory laparoscopy, laparoscopic appendectomy PRE-OP DIAGNOSIS: Abdominal pain TISSUE SUBMITTED: Appendix MICROSCOPIC DIAGNOSIS APPENDIX, APPENDECTOMY: * FIBROUS OBLITERATION OF THE LUMEN MICROSCOPIC DESCRIPTION Slides are reviewed. GROSS DESCRIPTION Received in fixative is one container labeled with the patient's name and designated appendix. The specimen consists of an appendix measuring 5.5 x 0.7 x 0.5 cm. A small amount of periappendiceal adipose is attached. The serosal surface is white-ewing, smooth and shiny. No exudates or other lesions are identified. Sectioning reveal a tight lumen, with no fecaliths idenitfied. The proximal end is closed with an 8mm staple line. The proximal end is inked black, and the appendix is serially sectioned and totally submitted in two cassettes. TE2 07/02/2024 CPT: 69671
--- NOTE | 2024-06-30 10:53 | PCM.OPRPT ---
Operative Report (Standard) Operative Information Date of Procedure: 06/30/24 Pre-Operative Diagnosis: Acute onset right lower quadrant pain with abnormal CT imaging inability to rule out appendicitis Post-Operative Diagnosis: Internal hernia created by adhesive bands in right lower quadrant Surgery/Procedure Performed: 1. Diagnostic laparoscopy with laparoscopic adhesiolysis 2. Laparoscopic appendectomy circular knife machine cutter: Yes Bilingual Patient Support Caseworker: Alfonso Lopez Tasks completed by catering assistant: Opening & closing, Retracting and Other (laparoscopic camera operation) Type of Anesthesia: General/Supplemental RN Documented Start/Stop Times: Operation Date: 06/30/24 10:20 Case Time Anesthesia Start 06/30/24 09:37 Into Room 06/30/24 09:37 Procedure Start 06/30/24 09:58 Procedure End 06/30/24 10:58 Anesthesia End 06/30/24 11:05 Out of Room 06/30/24 11:05 Into Recovery 06/30/24 11:11 Out of Recovery 06/30/24 11:38 Procedure Start Time: 09:58 Procedure Stop Time: 10:58 Select all DRAINS/GRAFTS/IMPLANTS that apply: None Estimated Blood Loss: 15 Specimen collected: Yes Description of specimen(s) removed: Appendix Description of surgery: After appropriate identification in the preoperative holding area, the patient was brought to the operating room and placed supine on the operating room table. Antibiotics had been preoperatively administered. Consents were confirmed. Patient was then induced with general endotracheal anesthetic. The abdomen was prepped and draped in usual sterile fashion. Formal timeout was conducted to confirm both the patient and the procedure. A supraumbilical incision was made and carried down to the level of the fascia which was sharply opened. After opening the peritoneum in like fashion a finger sweep was made to confirm position, and a balloon trocar was placed and pneumoperitoneum was established to 15 mmHg. Patient was positioned in Trendelenburg with the left side down. Two additional 5 mm trocars were placed in the left lower quadrant and suprapubic positions. The peritoneum was inspected and there were no signs of inadvertent injury from this Mccarthy entry. The appendix was not immediately visualized but instead there was a injectable mildly dilated segment of small bowel disappearing posterior and laterally to the cecum. Using blunt laparoscopic dissection, I was able to demonstrate that the small bowel was trapped with then a compartment a lateral to the colon bounded anteriorly by a broad adhesive band between the cecum and the lateral abdominal wall. Gentle traction was applied to the bowel until it was fully reduced back to the pelvis. Immediately there is an improved appearance of its perfusion. I then used a laparoscopic harmonic energy device to divide these bands and several more proximally to probably open the compartment adjacent to the ascending colon and prevent risk for future entrapment. Moving into the pelvis I found multiple loops of ileum that were adherent upon 1 another via small adhesive bands. I traced the tinea coli of the cecum proximally until I found a normally?proportioned appendix diving deeply into the nest of small bowel and small bowel mesentery. Since I had already begun the process of adhesion lysis I continued this until the terminal ileal segment was fully straightened. A fourth 5 mm port was placed in the left upper quadrant under laparoscopic visualization to facilitate safe lysis of adhesions. Great care was taken to avoid injury to the bowel itself and the lysis of adhesions was completed with laparoscopic fanta. Minimal bleeding resulted with this process. In relieving these adhesions I was unable to traced distally the appendix through the soft tissue and was careful to follow it directly against the corpus of the appendix by providing traction out of the pelvis and retroperitoneum. Adhesions and mesoappendix were divided directly against the appendix using application of the laparoscopic harmonic device. Lastly the base of the appendix was sealed with single firing of the Endo NEGIN stapler. Staple line was inspected for hemostasis and initially there was some oozing but this quickly abated. The appendix was placed in an Endo Catch bag. The small amount of bleeding that was present in the area of the patient's prior internal hernia as well as the region of the mesoappendix was irrigated and suctioned free of the peritoneal cavity using laparoscopic suction rod placer device. I then ran the bowel proximally through the ileal segment and found further improvements in the bowel perfusion and was satisfied with this inspection. After hemostasis was confirmed the appendix was removed from the umbilical port site. Pneumoperitoneum was then evacuated and the supraumbilical port site fascia was closed with #1 Vicryl in a [id number] fashion. The port sites were infiltrated with 30 mL local anesthetic. The skin of each port site was closed with 4-0 Monocryl in a subcuticular fashion. Steri-Strips and OpSite dressings were applied. Patient tolerated procedure well without any apparent complications. They were awoken from general anesthetic without issue and transferred to post anesthesia care unit for ongoing recovery. Surgical Findings: ? Injected small bowel (later identified as proximal ileum) found incarcerated with an internal hernia caused by adhesive band between abdominal sidewall and cecum ? Normal?appearing appendix found coursing through small bowel mesentery ? Numerous small bowel adhesions in the right lower quadrant Complications Complications: No
[2024-06-30] MEDS: Bupivacaine 0.25% 30 ML Vial (10:54)
--- NOTE | 2024-06-30 12:15 | CPS ---
Talked to pt to let her know aerosols had been ordered. She wants to take her Dulera instead which we could send to pharmacy. Sending message on Backline to Dr Harmon.
--- NOTE | 2024-06-30 13:51 | CASEMGMT ---
YIFAN WILLSON in to discuss BARBA form with patient. YIFAN WILLSON explained BARBA form, patient voiced understanding. Pt signed form and filed in chart. Pt provided with a copy of signed BARBA form. Patient had no further questions or concerns at this time. YIFAN WILLSON discussed DC planning wtih pt, she is I at baseline and denies any DC needs at this time.
[2024-06-30] MEDS: 0.9% Normal Saline (100mL Bag) 100 ML 15 ML IV (14:05)
[2024-06-30] MEDS: amLODIPine 5 MG Tablet PO (14:06)
[2024-06-30] MEDS: Atorvastatin Calcium 10 MG Tablet PO (21:25)
[2024-07-01 03:29] VITALS: BP 135/68; PULSE 79; RESP 16; TEMP 36.6; O2SAT 95
[2024-07-01] MEDS: Piperacil/Tazobactam 3.375 GM in 0.9% Normal Saline (50mL MB+) 50 ML IV ×2 (06:31→14:07)
[2024-07-01 06:40] VITALS: BP 123/63; PULSE 74; RESP 16; TEMP 36.6; O2SAT 93
[2024-07-01 08:03] LABS: Absolute Lymphocyte Count 0.63 X10^3/uL (0.83-4.51); Absolute Neutrophil Count 3.2 X10^3/uL (2.0-7.7); Basophil# 0.01 X10^3/uL; Basophil% 0.2 % (0-1); Eosinophil# 0.22 X10^3/uL; Eosinophils% 4.9 % (0-5); Hematocrit 34.8 % (37-47); Hemoglobin 11.6 g/dL (12.0-15.0); Lymphocyte # 0.63 X10^3/ul (0.83-4.51); Mean Corp Hgb Conc 33.3 g/dL (32-36); Mean Corpuscular Hgb 31.6 pg (27.0-32.0); Mean Corpuscular Volume 94.8 fL (81-99); Mean Platelet Vol. 10.1 fl (6.2-12.0); Monocyte# 0.45 X10^3/uL; NRBC Flagged by Analyzer 0 % (0-5); Neutrophil # 3.17 X10^3/uL (2.7-7.7); Neutrophil % 70.5 % (47-70); Platelet Count 207 K/mm3 (150-450); RBC Distribution Width CV 12.5 % (11.6-14.6); RBC Distribution Width SD 43.3 fl (35.1-43.9); Red Blood Count 3.67 M/mm3 (4.2-5.4); White Blood Count 4.5 K/mm3 (4.4-11.0)
[2024-07-01 08:16] VITALS: BP 135/70; PULSE 74; RESP 18; TEMP 36.7; O2SAT 95
[2024-07-01 09:24] LABS: Anion Gap 10 (5-15); BUN 9 mg/dL (4-19); Calcium,Total 8.8 mg/dL (7.6-11.0); Carbon Dioxide 25.2 mmol/L (21.0-32.0); Chloride 106 mmol/L (98-108); Creatinine, Serum 0.86 mg/dL (0.70-1.20); EST Glomerular Filtration Rate 69 (>60); Estimated Creatinine Clearance 51.28 ml/min (50-250); Glucose 100 mg/dL (70-99); Potassium 3.6 mmol/L (3.3-5.1); Sodium Level 141 mmol/L (133-145)
[2024-07-01] MEDS: Acetaminophen 500 MG Tablet PO (09:47)
[2024-07-01] MEDS: amLODIPine 5 MG Tablet PO (09:48)
[2024-07-01 14:06] VITALS: BP 132/80; PULSE 76; RESP 18; TEMP 36.7; O2SAT 96
--- NOTE | 2024-07-01 14:10 | PCM.POST.ANE ---
Anesthesia: Postop Eval I Current Vital Signs Temperature: 98.1 F Pulse Rate: 76 Blood Pressure: 132/80 Respiratory Rate: 18 Pulse Ox: 96 Oxygen Delivery Method: Room Air Assessment Airway patent: Yes Spontaneous unlabored respirations: Yes nausea: No Vomiting: No Anesthesia Complication: No Fluid Hydration Crystalloid volume administer (ml): 600 Total IV fluid infused: 600 Progress Note Anesthesia document: Postop Eval 1 completed: Yes
[2024-07-01 14:42] VITALS: BP 132/80; PULSE 76; RESP 18; TEMP 36.7; O2SAT 96
--- NOTE | 2024-07-01 14:42 | PCM.POSTANE2 ---
Anesthesia Postop Eval I Sum Postop Eval Completion status Anesthesia document: Postop Eval 1 completed: Yes Anesthesia Postop Eval I Summary Anesthesia Postop Eval I Summary: Anesthesia Postop Eval I: Assessment Summary Airway patent Yes 07/01/24 14:42 Spontaneous unlabored Yes 07/01/24 14:42 respirations Mental status nausea No 07/01/24 14:42 Vomiting No 07/01/24 14:42 Anesthesia Postop Eval I: Fluid Summary Crystalloid volume administer 600 07/01/24 14:42 (ml) Colloids volume administered ( ml) Blood Product volume administered (ml) Total IV fluid infused 600 07/01/24 14:42 Anesthesia Postop Eval I: Summary Notes Anesthesia Complication No 07/01/24 14:42 Anesthesia Complication Comment: Post-operative progress note Anesthesia: Postop Eval II Evaluation Mental status: Awake Pain Level: 0 nausea: No Vomiting: No
--- NOTE | 2024-07-01 16:14 | PCM.PN.SRG ---
Subjective Subjective Patient seen and examined during rounds. She is found resting in bed but reports that her abdomen is feeling much better. She confirms that she has had return of bowel function with both flatus and small bowel movement. She states that she is tired of her liquid diet and is interested diet advance. She denies any pain. Objective Data Objective Data Vital Signs: Vital Signs Temp Pulse Resp BP Pulse Ox O2 Del Method 98.1 F 76 18 132/80 H 96 Room Air 07/01/24 14:42 07/01/24 14:42 07/01/24 14:42 07/01/24 14:42 07/01/24 14:42 07/01/24 14:42 Oxygen Delivery Method Room Air Weight: 151 lb 10.848 oz Body Mass Index (BMI) 24.5 Intake & Output: Intake and Output for Last 24 Hours 06/29/24 06/30/24 07/02/24 23:59 23:59 00:59 Intake Total 1000 / 1000 2340 / 2340 1470 / 1470 Output Total 550 / 550 2300 / 2300 Balance 1000 / 1000 1790 / 1790 -830 / -830 Lab / Micro Data 07/01/24 07:06 07/01/24 07:06 Labs: Laboratory Results - last 24 hr 07/01/24 07:06: WBC 4.5, RBC 3.67 L, Hgb 11.6 L, Hct 34.8 L, MCV 94.8, MCH 31.6, MCHC 33.3, RDW Std Deviation 43.3, RDW Coeff of Lucy 12.5, Plt Count 207, MPV 10.1, Immature Gran % (Auto) 0.400, Neut % (Auto) 70.5 H, Lymph % (Auto) 14.0 L, [place] % (Auto) 10.0, Eos % (Auto) 4.9, Baso % (Auto) 0.2, Absolute Neuts (auto) 3.2, Absolute Lymphs (auto) 0.63 L, Nucleated RBC % 0, Sodium 141, Potassium 3.6, Chloride 106, Carbon Dioxide 25.2, Anion Gap 10, BUN 9, Creatinine 0.86, Estim Creat Clear Calc 51.28, Est GFR (MDRD) Non-Af 69, BUN/Creatinine Ratio 10.0, Glucose 100 H, Calcium 8.8 Physical Exam Const oriented x3 and no apparent distress Resp normal respiratory effort GI GI Narrative: Operative dressings in place without strikethrough. Patient's abdomen is nondistended, soft, appropriately tender about incision sites. There is no tenderness on palpation of the right lower quadrant Assessment & Plan Assessment/Plan (1) Internal hernia: PLAN: Patient is 79-year-old female postoperative day 1 from diagnostic laparoscopy with adhesiolysis and finding of internal hernia of the ileum through several adhesive bands in the right lower quadrant. Additionally, laparoscopic appendectomy was completed at the time of the operation. Patient is doing well and has minimal pain complaints from her incisions. She has also experienced return of bowel function and has been tolerating her clear liquid diet. Therefore I will plan to advance to a full liquid diet and monitor for tolerance through this advancement. Additionally, I do not believe she requires any further antibiotic coverage as her appendix was completely normal grossly in its morphology. Therefore these will be discontinued. Anticipated discharge potentially this evening or more likely tomorrow morning. Sage Harmon MD General Surgery Endocrine Surgery Pager: [facility] [address] [place] [address] [place] [address] Office: [phone] Charges/Coding Visit Charges Inpatient E&M: 36489 Subs Hosp L2
[2024-07-01] MEDS: Atorvastatin Calcium 10 MG Tablet PO (20:21)
[2024-07-01 20:30] VITALS: BP 126/72; PULSE 76; RESP 17; TEMP 36.8; O2SAT 96
[2024-07-01] MEDS: MELATONIN 3 MG TABLET PO (22:23)
[2024-07-02 03:53] VITALS: BP 150/75; PULSE 85; RESP 18; TEMP 36.4; O2SAT 95
[2024-07-02 07:24] LABS: Absolute Lymphocyte Count 0.58 X10^3/uL (0.83-4.51); Absolute Neutrophil Count 2.3 X10^3/uL (2.0-7.7); Basophil# 0.02 X10^3/uL; Basophil% 0.6 % (0-1); Eosinophil# 0.33 X10^3/uL; Eosinophils% 9.1 % (0-5); Hematocrit 34.6 % (37-47); Hemoglobin 11.9 g/dL (12.0-15.0); Lymphocyte # 0.58 X10^3/ul (0.83-4.51); Mean Corp Hgb Conc 34.4 g/dL (32-36); Mean Corpuscular Hgb 31.9 pg (27.0-32.0); Mean Corpuscular Volume 92.8 fL (81-99); Mean Platelet Vol. 9.9 fl (6.2-12.0); Monocyte# 0.39 X10^3/uL; Monocyte% 10.8 % (0-10); NRBC Flagged by Analyzer 0 % (0-5); Neutrophil # 2.29 X10^3/uL (2.7-7.7); Neutrophil % 63.2 % (47-70); POSITIVE DIFFERENTIAL YES; Platelet Count 194 K/mm3 (150-450); RBC Distribution Width CV 12.5 % (11.6-14.6); RBC Distribution Width SD 42.4 fl (35.1-43.9); Red Blood Count 3.73 M/mm3 (4.2-5.4); White Blood Count 3.6 K/mm3 (4.4-11.0)
[2024-07-02 08:09] LABS: Anion Gap 13 (5-15); BUN 7 mg/dL (4-19); BUN/Creat Ratio 9.5 RATIO (10-20); Calcium,Total 8.3 mg/dL (7.6-11.0); Carbon Dioxide 23.5 mmol/L (21.0-32.0); Chloride 105 mmol/L (98-108); Creatinine, Serum 0.75 mg/dL (0.70-1.20); EST Glomerular Filtration Rate 82 (>60); Estimated Creatinine Clearance 55.13 ml/min (50-250); Glucose 93 mg/dL (70-99); Potassium 3.1 mmol/L (3.3-5.1); Sodium Level 141 mmol/L (133-145)
--- NOTE | 2024-07-02 10:30 | PN.SURG_ITS ---
Subjective Subjective Patient evaluated resting comfortably in bed. She notes some incisional discomfort. She denies any nausea, vomiting. She is tolerating her current diet. Objective Data Objective Data Vital Signs: Vital Signs Temp Pulse Resp BP Pulse Ox O2 Del Method 97.5 F L 85 18 150/75 H 95 Room Air 07/02/24 03:53 07/02/24 03:53 07/02/24 03:53 07/02/24 03:53 07/02/24 03:53 07/02/24 03:53 Oxygen Delivery Method Room Air Weight: 151 lb 10.848 oz Body Mass Index (BMI) 24.5 Intake & Output: Intake and Output for Last 24 Hours 06/30/24 07/02/24 07/02/24 23:59 00:59 23:59 Intake Total 2340 / 2340 1720 / 1720 380 / 380 Output Total 550 / 550 2700 / 2700 400 / 400 Balance 1790 / 1790 -980 / -980 -20 / -20 Lab / Micro Data 07/02/24 06:39 07/02/24 06:39 Labs: Laboratory Results - last 24 hr 07/02/24 06:39: WBC 3.6 L, RBC 3.73 L, Hgb 11.9 L, Hct 34.6 L, MCV 92.8, MCH 31.9, MCHC 34.4, RDW Std Deviation 42.4, RDW Coeff of Lucy 12.5, Plt Count 194, MPV 9.9, Immature Gran % (Auto) 0.300, Neut % (Auto) 63.2, Lymph % (Auto) 16.0 L , [place] % (Auto) 10.8 H, Eos % (Auto) 9.1 H, Baso % (Auto) 0.6, Absolute Neuts (auto) 2.3, Absolute Lymphs (auto) 0.58 L, Nucleated RBC % 0, Sodium 141, P otassium 3.1 L, Chloride 105, Carbon Dioxide 23.5, Anion Gap 13, BUN 7, Creatinine 0.75, Estim Creat Clear Calc 55.13, Est GFR (MDRD) Non-Af 82, B UN/Creatinine Ratio 9.5 L, Glucose 93, Calcium 8.3 Physical Exam GI GI Narrative: Abdomen- soft, slight tenderness at the incision sites. Op-sites were removed. Incisions c/d/i. No erythema or infection noted. Assessment & Plan Assessment/Plan (1) Internal hernia: PLAN: I am following this patient in conjunction with Dr. Harmon. He has independently evaluated this patient. Labs reviewed. Replaced potassium Increase diet to regular, if patient tolerated she may be discharged today Ready for discharge later today Charges/Coding Visit Charges Inpatient E&M: 95102 Subs Hosp L1 (post-op; no charge)
--- NOTE | 2024-07-02 10:40 | PCM.DC.SUM ---
Providers Date of Admission: 06/30/24 Primary Care Physician: Dr. Hernan Srivastava MD Reason For Visit: R/O APPENDICITIS Diagnosis Discharge Diagnosis (1) Internal hernia: Status: Acute Code(s): K45.8 - Other specified abdominal hernia without obstruction or gangrene Plan: I am following this patient in conjunction with Dr. Harmon. He has independently evaluated this patient. Labs reviewed. Replaced potassium Increase diet to regular, if patient tolerated she may be discharged today Ready for discharge later today Medications at Discharge Home Medications albuterol sulfate 90 mcg/actuation aerosol inhaler 2 - 4 puff inhalation Q2H PRN PRN wheezing 06/30/24 amlodipine 5 mg tablet 5 mg PO DAILY blood pressure 06/30/24 ascorbic acid (vitamin C) 500 mg chewable tablet (C-500) 500 mg PO DAILY supplement 06/30/24 atorvastatin 10 mg tablet 10 mg PO QHS cholesterol 06/30/24 cetirizine 10 mg capsule (All Day Allergy (cetirizine)) 10 mg PO QHS allergies 06/30/24 ibuprofen 200 mg tablet (Advil) 400 mg PO BID arthritis 06/30/24 lorazepam 1 mg tablet 1 mg PO QHS PRN PRN anxiety or insomnia 06/30/24 mometasone-formoterol HFA 100 mcg-5 mcg/actuation aerosol inhaler (Dulera) 1 puff inhalation BID asthma 06/30/24 multivitamin (Daily Value tablet) 1 tab PO DAILY supplement 06/30/24 acetaminophen 500 mg tablet 500 mg PO Q6H PRN PRN Pain Score 1-10 #0 tabs 07/02/24 Hospital Course Operations - (Diagnostic laparoscopy with laparoscopic lysis of adhesions; Laparoscopic appendectomy) Summary of Care Provided Minutes Spent on Discharge: 30 Hospital Course: Patient is a 79 y/o F who presented with an acute onset of abdominal pain. CT scan of ab/pel demonstrated inflammatory changes in the right lower quadrant without definitive identification of the appendix. Dr. Harmon performed a diagnostic laparoscopy with laparoscopic adhesiolysis and laparoscopic appendectomy on 06/30/24. Patient tolerated the procedure well. Patient had an uneventful hospitalization. Upon discharge, patient tolerated a regular diet. She had return of bowel function. Her incisional pain was well controlled. 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 Weight / BMI Weight Weight: 151 lb 10.848 oz Body Mass Index (BMI) 24.5 ABG / Lab / Microbiology Data 07/02/24 06:39 07/02/24 06:39 Laboratory: Laboratory Results - last 24 hr 07/02/24 06:39: WBC 3.6 L, RBC 3.73 L, Hgb 11.9 L, Hct 34.6 L, MCV 92.8, MCH 31.9, MCHC 34.4, RDW Std Deviation 42.4, RDW Coeff of Lucy 12.5, Plt Count 194, MPV 9.9, Immature Gran % (Auto) 0.300, Neut % (Auto) 63.2, Lymph % (Auto) 16.0 L, [place] % (Auto) 10.8 H, Eos % (Auto) 9.1 H, Baso % (Auto) 0.6, Absolute Neuts (auto) 2.3, Absolute Lymphs (auto) 0.58 L, Nucleated RBC % 0, Sodium 141, Potassium 3.1 L, Chloride 105, Carbon Dioxide 23.5, Anion Gap 13, BUN 7, Creatinine 0.75, Estim Creat Clear Calc 55.13, Est GFR (MDRD) Non-Af 82, BUN/Creatinine Ratio 9.5 L, Glucose 93, Calcium 8.3 D/C Instructions Discharge Diet: Light diet - advance as tolerated Discharge Activity: May Drive and May Shower Lifting Restricted to (Lbs): 10 Lifting Restrictions: Nothing greater than 10 pounds for 2 wks. No strenuous activity for 4 wks Call your doctor if your incision/area has: Continuous Slow Oozing, Sudden Increased Bleeding, Increased Pain/ Swelling, Increased Redness, Foul Smelling Discharge and Swelling at the incision site Call your doctor if you observe: Fever of 101 or Higher Suture Line Care: Avoid Pulling/Pushing and Avoid Pinching/Bending Cleanse incision/area with: Soap & Water DC O2, CPAP, BIPAP Needs Home O2 Discharge instructions: No Please Follow Up With: Muriel Canales PA-C When: Please contact our office to schedule a follow-up appointment at [phone], option #2 to schedule an appointment for 10-14 days from surgery Meaningful Use Info Meaningful Use Meaningful Use Diagnoses (Choose all that apply): None applicable Ischemic Stroke Statin Dosing Therapy Reference: STATIN DOSE THERAPY REFERENCE: * Patients > 75 years receive moderate or high dose statin therapy. * Patients 75 years or YOUNGER should receive HIGH intensity statin dose unless contraindicated. You will be required to document reason for non-treatment if statin daily dose does not meet guidelines. HIGH DOSE STATIN THERAPY DAILY Atorvastatin > than or = to 40 mg Rosuvastatin > than or = to 20 mg Amlodipine + Atorvastatin > than or = to 2.5/40 mg Ezetimibe + Simvastatin 10/80 mg Simvastatin 80mg Discharge Plan Admission Admit Date/Time: 06/30/24 00:41 Primary Reason for Your Visit: Acute abdominal pain secondary to internal hernia Attending Provider: Sage Harmon Primary Care Provider: Hernan Srivastava Instructions Additional Instructions / Restrictions: Appendectomy; Release of adhesions causing an internal hernia Diet ? Start light with soups and soft bland foods. You may advance diet as tolerated. Activity ? You may drive in 3-5 days but not while taking narcotic pain medication. ? I encourage walking. You may go up steps, one at a time. ? Do not swim or use hot tubs for 2 weeks. ? For comfort, you may use warm compresses or ice as needed for 15-20 minutes at a time. Lifting ? You may lift up to 10 pounds for 2 weeks. No strenuous activity for 4 weeks Dressings/Incision ? When plastic dressings are removed, you will find steri-strips. It is okay to continue showering with them in place, pat them dry. ? You may remove steri-strips after 1 week. We recommend getting them soaking wet for easier removal. Medications ? Anesthesia used during surgery and pain medications may cause constipation. I recommend initiating on the day of surgery a fiber supplement like, Metamucil, Citrucel, FiberCon, Benefiber, or a generic form of these medications. 1 heaping tablespoon in water daily. You may continue to utilize any bowel regimen or oral laxatives that you routinely take. ? As long as you are not intolerant to Tylenol, acetaminophen, ibuprofen, Motrin, Advil, Aleve, or similar medications, I would recommend transitioning to these [id number] medicines as soon as possible instead of continued use of narcotic pain medication. Follow up ? You should call [facility] soon after surgery, at [phone] option 2 to make a follow up appointment for 10-14 days after your surgery. Discharge Orders/Prescriptions Prescriptions: New acetaminophen 500 mg Tablet 500 mg PO Q6H PRN PRN (Reason: Pain Score 1-10) Qty: 0 0RF Continued atorvastatin 10 mg tablet 10 mg PO QHS amlodipine 5 mg tablet 5 mg PO DAILY All Day Allergy (cetirizine) 10 mg capsule 10 mg PO QHS albuterol sulfate 90 mcg/actuation HFA aerosol inhaler 2 - 4 puff INHALATION Q2H PRN PRN (Reason: wheezing) Dulera 100-5 mcg/actuation HFA aerosol inhaler 1 puff INHALATION BID multivitamin [Daily Value] Tablet 1 tab PO DAILY ibuprofen [Advil] 200 mg tablet 400 mg PO BID lorazepam 1 mg tablet 1 mg PO QHS PRN PRN (Reason: anxiety or insomnia) Patient Comments: TAKE 1 TABLET BY MOUTH ONCE DAILY AT BEDTIME NEEDED FOR ANXIETY OR INSOMNIA FOR UP TO 180 DAYS ascorbic acid (vitamin C) [C-500] 500 mg tablet,chewable 500 mg PO DAILY Referrals / Follow Up: Hernan Srivastava MD [Primary Care Provider] - Muriel Canales PA-C [Med Staff - [facility]] - 07/12/24 Disposition Disposition (needs filled in before D/C Order can be placed): Home, Self Care Charges/Coding Visit Charges Inpatient E&M: 06916 Disch Hosp (no charge; post-op)
[2024-07-02 11:16] VITALS: BP 114/66; PULSE 75; RESP 16; TEMP 36.6; O2SAT 95
[2024-07-02] MEDS: amLODIPine 5 MG Tablet PO (11:19)
[2024-07-02] MEDS: Potassium Chloride Oral Tablet 20 MEQ 60 MEQ PO (11:20)
== END 2024-07-02 14:20 | disposition home or self-care (01) ==
LOC: ED 06-30 00:23 → MS3 06-30 01:40
PROVIDERS: Admitting Provider Surgery; Emergency Provider Emergency Medicine; PCP Internal Medicine; Visit Provider Surgery
PROC: (CPT 49320; principal; 2024-06-30 10:00)
DX: R93.5 Abnormal findings on diagnostic imaging of other abdominal regions, including retroperitoneum (principal); K45.8 Other specified abdominal hernia without obstruction or gangrene; I10 Essential (primary) hypertension; E78.5 Hyperlipidemia, unspecified; J45.909 Unspecified asthma, uncomplicated; Z79.899 Other long term (current) drug therapy
CPT/HCPCS: 44970; 00840; 36415; 74176; 74177; 80048; 80053; 81001; 83690; 85025; 88304; 93005; 96361; 96365; 96366; 96375; 96376; 99221; 99283; Q9967; A4216; G0378; J2405